=== PATIENT | female | born 1935 | race American Indian/Alaskan Native ===

== ENCOUNTER 2016-11-28 12:10 | Day surgery (SDC) | payer MEDICARE ==
[2016-11-28] MEDS ORDERED: NACL 0.9% 1000 ML 1,000 ML ONE (15:05)
[2016-11-28] MEDS ORDERED: DIPRIVAN 10 MG/ML IV ONE (15:25)
[2016-11-28] MEDS ORDERED: NACL 0.9% 1000 ML 1,000 ML IV SCH (17:00)
[2016-11-28] MEDS ORDERED: WATER FOR IRRIG STERILE IR ONE (17:59)
[2016-11-28] MEDS ORDERED: TRIPLE ANTIBIOTIC TP ONE (18:10)
[2016-11-28] MEDS ORDERED: XYLOCAINE MPF 2% ONE (18:10)
--- NOTE | 2016-11-28 18:41 | Discharge Summary ---
Short Stay Discharge Plan Activity: advance as tolerated Weight Bearing Status: Non-Weight Bearing (Resume tube feeding)
--- NOTE | 2016-11-28 18:41 | Operative Report ---
Operative Report Operative Report: Date of procedure: 11/28/2016 Procedure: Gastrostomy tube replacement Attending physician: Luis Betancourt MD Care Services Manager: Luis Betancourt MD Indication: Patient is an 81-year-old female halfway resident who was brought seen because of malfunctioning gastrostomy tube. This procedure is done to replace patient's malfunctioning gastrostomy tube. Consent: Informed consent was obtained after advising the patient and family regarding nature of this procedure, its indications, potential benefits as well as possible complications including but not limited to bleeding perforation and adverse reaction to medication, infection as well as other cardiopulmonary complications. An informed consent was then obtained after due opportunity was provided for questions and answers. Monitoring: Patient was monitored continuously with pulse oximetry and electrocardiographic recordings as well as blood pressure recordings. Vital signs remained stable throughout this procedure with no untoward events. Preoperative assessment: Patient was assessed immediately prior to this procedure for capacity to tolerate monitored anesthesia care and moderate sedation as well as general anesthesia. Patient's ASA classification is 4, Mallampati class is 2, Hyomental distance is 3. Instrument: 20 Romansh Ponsky non-balloon gastrostomy tube ([place] endoscopy) Medications: Propofol given intravenously in divided doses. Patient with dementia was restless belligerent and unable to follow commands. In other to accomplish this procedure, patient was closely monitored and sedation was needed to effectively and safely perform this procedure. Description of procedure: Patient was placed in a position after achieving sedation, the malfunctioning gastrostomy tube balloon was deflated. The tube was then removed from the location. Subsequently, the site was cleaned multiple times with Betadine and alcohol and sterilely draped. A non balloon gastrostomy tube was prepared by copiously lubricating it with Triple Antibiotic. The tract was inspected. Subsequently, using traction, the balloon gastrostomy tube was then inserted into the stomach. There was prompt return of gastric juice. The tube was then secured at 3.5 cm. Patient tolerated this procedure well with no untoward events. After placing the gastrostomy tube, the site was then completely dressed. The tube was flushed and secured in position. Impression: Successful gastrostomy tube replacement. Plan: The tube site is currently at 3.5 cm. It should be cleaned daily with Betadine and peroxide. Triple Antibiotic should be applied daily to the site with dry gauze dressing a for at least 2-3 weeks. The tube site should be carefully inspected daily for any redness or discharge. The tube should be flushed with 100 mL of water every 6 hours. The tube should also be flushed additionally after administration medications or after completing a feeding session. Tube may be used immediately for enteral feeding . The tube also may be used immediately for administration of medications. If the tube is accidentally dislodged, a employee communications specialist should be notified immediately. Residuals from the feeding tube should be checked every 3 hours for at least 24- 36 hours. If patient tolerates feeding, his feeding volume should be optimized as may advised by the dietitian. If patient has high residuals, then caution should be used in increasing the feeding rate to avoid aspiration. The head of the bed should be kept at 30 always.
[2016-11-28 19:01] VITALS: BP 110/60
== END 2016-11-28 12:11 | disposition home or self-care (01) ==
LOC: GIO 12:10
PROVIDERS: ATTEND Internal Medicine Gastroenterology
DX: K94.23 Gastrostomy malfunction (principal)
CPT/HCPCS: 43760; 93005; 93010; J2704; J7030; A6250